=== PATIENT | male | born 1980 | race Caucasian/White ===

== ENCOUNTER 2019-01-17 09:44 | Day surgery (SDC) | payer BC, SELFPAY ==
--- NOTE | 2019-01-17 | PATH_ITS ---
[facility] Accession Number: [id number] . 01 Material submitted: . PART A: cecum - CECAL POLYP PART B: rectosigmoid junction - RECTOSIGMOID POLYP . 01 Clinical history: . COLONOSCOPY W/POSS BX . 02 Diagnosis: A. Cecum, Polyp, Biopsy: Sessile serrated adenoma. . B. Rectosigmoid Colon, Polyp, Biopsy: Hyperplastic polyp. MRV 01/18/2019 1338 Local . 02 Electronically signed: . Mica Cabrales MD, Pathologist NPI- [id number] . 01 Gross description: . Part A: CECAL POLYP : Received in formalin is 1 fragment(s) of orosco, soft tissue measuring 0.3 x 0.3 x 0.2 cm submitted entirely in 1 cassette(s) Part B: RECTOSIGMOID POLYP: Received in formalin is 1 fragment(s) of orosco, soft tissue measuring 0.3 x 0.3 x 0.2 cm submitted entirely in 1 cassette(s) [place] [place]/17/2019[place] Local . 02 Pathologist provided ICD-10: D12.0 . 02 CPT . 291377, 230639 Performed at: 01 [facility] [address] [facility] [place], [place], [place] [id number] MD Enzo Tuttle MD Phone: [phone] Performed at: 02 [facility] [place] [address] [place], [place] [id number] MD Mica Cabrales MD Phone: [phone]
--- NOTE | 2019-01-17 07:57 | P.HP_ITS ---
History of Present Illness History of Present Illness Date Patient Seen: 01/17/19 Chief complaint: [id number] COLONOSCOPY W/POSS BX Narrative: 38-year-old male with a family history of colon cancer in his father as well as a personal history of colon polyps, who had his last colonoscopy p erformed 08/18/2016 with removal of multiple polyps including a tubulovillous adenoma. Recommended recall was for 1 year. No active GI complaints at present Meds Home Medications and Allergies Home Medications Medication Instructions Recorded Confirmed Type No Known Home Medications 01/17/19 01/17/19 History Allergies Allergy/AdvReac Type Severity Reaction Status Date / Time No Known Drug Allergies Allergy Verified 01/17/19 10:09 Exam Narrative Exam Narrative: General: Patient is overweight, not in apparent distress Cardiovascular: Regular rate and rhythm, no murmurs, rubs, or gallops; no evidence of edema; no palpable abdominal aortic aneurysm Gastrointestinal: Normoactive bowel sounds, soft, nontender, nondistended, no rebound tenderness, no hepatosplenomegaly, no evidence of hernia Assessment & Plan Assessment & Plan narrative: 38-year-old male here for colon polyp surveillance; last colonoscopy August 2016 with multiple polyps; he has a family history of colon cancer in his father Regarding the procedure(s), the risks and potential complications, benefits, and alternatives (including not doing the procedure) were discussed with the patient. The risks include but are not limited to bleeding, splenic injury, infection, perforation which may require surgical intervention, missed lesions, and adverse reactions to sedative medicines. After a question and answer period, the patient agreed to proceed with the procedure(s) and gives informed consent.
[2019-01-17 10:09] VITALS: BP 125/83; PULSE 71; RESP 20; TEMP 36; O2SAT 98; BMI 26.6
[2019-01-17] MEDS: SODIUM CHLORIDE 0.9% 1,000 ML 70 ML IV (10:19)
[2019-01-17] MEDS: MIDAZOLAM 5 MG/5 ML VIAL IV (11:04)
[2019-01-17] MEDS: fentaNYL 250 MCG/5 ML INJ IV (11:05)
[2019-01-17 11:17] VITALS: BP 110/81; PULSE 69; RESP 11; TEMP 36.2; O2SAT 97
--- NOTE | 2019-01-17 11:17 | PM.OP.ENDO ---
Operative Date/Time/Diagnoses Date of procedure: 01/17/19 Procedure Notes Procedure in detail: Surgeon: Blake Young MD Procedure: Colonoscopy with polypectomy Preoperative diagnosis: Colon polyp surveillance, family history of colon cancer in father Postoperative diagnosis: Cecal and rectosigmoid polyps status post polypectomy, grade 1 internal hemorrhoids Medications: Conscious sedation using 4 mg IV of Midazolam and 100 mcg IV of Fentanyl Preanesthesia Assessment An H and P was performed/updated and the Px?s ASA class is 1. The procedure was discussed in detail with the patient. The potential risks and complications including infection, bleeding, missed lesions, perforation, need for surgery in case of perforation, prolonged hospital stay, and were explained. A brief question and answer period was allotted and once all questions were answered, informed consent was obtained. The patient was brought back to the procedure room and placed on standard monitoring. The patient?s vital signs were monitored continuously throughout the entire procedure. Prior to starting, a timeout was performed to confirm the patient?s identity, allergies, medications, and procedure. Procedure in detail The patient was placed in left lateral decubitus position and once adequate sedation was obtained a NENA was performed. The digital rectal examination did not reveal any palpable lesions. The tip of the colonoscope was placed in the anal canal and advanced without difficulty all the way to the cecum which was identified by the appendiceal orifice and the ileocecal valve. The terminal ileum was intubated to a distance of 5 cm from the ileocecal valve and the mucosa appeared normal. The colonoscope was then withdrawn back into the cecum. Careful examination of all jimenez of the colon was performed with irrigation of any residual stool. In the cecum, a 3 mm sessile polyp was found and removed by means of cold Jumbo forceps. Resection and retrieval was complete with minimal bleeding. In the rectosigmoid, a 2 mm sessile polyp was found and removed by means of cold Jumbo forceps. Resection and retrieval was complete with minimal bleeding Retroflexion was performed in the rectum which revealed grade 1 internal hemorrhoids. The patient tolerated the procedure well and will be brought back to the recovery area to be discharged once criteria are met. The prep was judged to be good and adequate to identify polyps less than 5 mm. The withdrawal time was 10 minutes. The total physician intraservice time was 15 minutes. Complications There were no complications and estimated blood loss was minimal. Recommendations: Resume previous diet Continue outPx medications Follow up pathology results Repeat colonoscopy in 5 years An emergency contact number was given to the patient for any complications related to the procedure
[2019-01-17 11:23] VITALS: BP 113/81; PULSE 68; RESP 19; TEMP 36.3; O2SAT 98
[2019-01-17 11:35] VITALS: BP 116/84; PULSE 73; RESP 18; TEMP 36.1; O2SAT 99
[2019-01-17 11:42] VITALS: BP 122/80; PULSE 72; RESP 20; TEMP 36.1; O2SAT 99
--- NOTE | 2019-01-17 11:42 | SUR.PHASEII ---
Patient denies pain/nausea. Tolerating po. VSS.
[2019-01-17 12:00] VITALS: BP 118/66; PULSE 66; RESP 16; TEMP 36.7; O2SAT 100
== END 2019-01-17 12:15 | disposition home or self-care (01) ==
PROVIDERS: Family Provider Family Medicine; PCP Family Medicine; Visit Provider Internal Medicine Gastroenterology
PROC: 0DJD8ZZ Inspection of Lower Intestinal Tract, Via Natural or Artificial Opening Endoscopic (ICD-10-PCS; CPT 45378; principal; 2019-01-17 11:00)
DX: Z12.11 Encounter for screening for malignant neoplasm of colon (principal); Z86.010 Personal history of colon polyps; Z80.0 Family history of malignant neoplasm of digestive organs; K64.0 First degree hemorrhoids; D12.0 Benign neoplasm of cecum; K63.5 Polyp of colon
CPT/HCPCS: 45380; J2250; J3010

== ENCOUNTER → 2023-06-03 11:57 | Outpatient (CLI) | payer BC, OTHER, SELFPAY ==
--- NOTE | 2023-06-03 11:59 | DI.RAD.S_ITS ---
PROCEDURE: XR CHEST 2V INDICATIONS: cough, SOB TECHNIQUE: 2 views of the chest were acquired. COMPARISON: None. FINDINGS: Surgical changes and devices: Postsurgical changes are seen in left glenoid with multiple suture anchors seen. Lungs and pleura: Lungs are clear. No pleural effusions or pneumothorax. Mediastinum: Mediastinal contours are normal. Heart size is normal. Bones and chest wall: No suspicious bony abnormalities. Soft tissues appear unremarkable. IMPRESSION: No acute cardiopulmonary pathology. Dictated by: Hipolito Montes De Oca M.D. on 06/03/2023 at 13:52 Approved by: Hipolito Montes De Oca M.D. on 06/03/2023 at 14:00
== END ==
PROVIDERS: Family Provider Family Medicine; PCP Family Medicine; Referring Provider Nurse Practitioner Family; Visit Provider Nurse Practitioner Family
DX: R05.9 Cough, unspecified (principal); R06.02 Shortness of breath
CPT/HCPCS: 71046

== ENCOUNTER 2023-08-07 09:47 | Emergency (ER) | payer BC, OTHER, SELFPAY ==
[2023-08-07 09:50] VITALS: BP 127/79; PULSE 82; RESP 16; TEMP 36.6; O2SAT 94; BMI 31.8
--- NOTE | 2023-08-07 10:02 | ED.FALL ---
HPI - Fall General Chief Complaint: Fall Stated Complaint: fell off ladder 8ft Time Seen by Provider: 08/07/23 09:56 Source: patient Mode of arrival: Ambulatory Limitations: no limitations History of Present Illness HPI Narrative: 42-year-old male with history of prior TBI, left rotator cuff repair who was cleaning his gutters this morning. He was coming down the ladder when it slipped out from underneath him. Patient states his feet were about 6-8 feet off the ground. Patient landed on his left side. He has complaints left-sided chest wall pain. A little bit into the flank. Patient states he does not think he hit his head he denies any headache, no loss of consciousness no dizziness no neck or back pain. Denies any hip or pelvic pain. States he has been able to ambulate without issue. He has some abrasions and swelling of his left forearm and shoulder. States he has good range of motion does not have any suspicion for broken bones. No numbness tingling or weakness. No loss of bowel or bladder control. Denies any intra-abdominal pain. Patient did not have any nausea or vomiting no other GI or urinary symptoms. This occurred this morning. Has not had anything for pain. States no daily prescription medications, has had prior left shoulder surgery in the past. No tobacco, occasional alcohol, none today, no recreational drugs. Primary care is Dr. Gonzales. Patient is accompanied by family. Patient is unsure of his tetanus status. Related Data Previous Rx's Medication Instructions Recorded oxycodone 5 mg tablet 5 mg PO Q6H PRN pain #10 tabs 08/07/23 Allergies Allergy/AdvReac Type Severity Reaction Status Date / Time No Known Drug Allergies Allergy Verified 06/03/23 11:12 Review of Systems Review of Systems ROS Unobtainable: All systems reviewed & are unremarkable except as noted in HPI and below Patient History Social History household members: spouse Smoking Status: Never smoker Smoking Status: Never smoker alcohol intake frequency: holidays/special occasions only Substance Use Type: does not use Exam Narrative Exam Narrative: GEN: Patient appears in mild distress. HEAD: No evidence of trauma, no raccoon/Gilbert sign. NECK: Nontender, painless range of motion, trachea midline Negative Nexus criteria, no midline line tenderness, distracting injury, altered mental status, neuro deficit, recent EtOH. EYES: PERRLA, EOMI ENT: External inspection normal, trachea is midline, TM's are normal no hemotypanum, Nares are clear, no septal hematoma, no dental or oral injury, airway is normal and with normal occlusion, No bony tenderness RESP: Chest slightly tender left lateral ribs, no point tenderness, no ecchymosis, no edema, no subcutaneous emphysema, and has symmetric movement, no ecchymosis, breath sounds are normal no crackles, wheezes or rales CVS: Heart sounds are normal, no murmur noted, No JVD. ABG/GI: Nontender, soft, normal bowel sounds, no distention, no organomegaly, pelvic rock is negative NEURO: Oriented AOx3, neuro is grossly intact, sensation and motor is normal all 4 extremities moving, cranial nerves II through XII are intact, GCS is 15 PSYCH: Normal mood and affect SKIN: Patient has a abrasion over the left forearm and arm, has some mild swelling and bruising over the proximal left forearm. Warm and dry, no crepitus and without decubitus BACK: No CVA tenderness, no vertebral tenderness, no step-off's, no crepitus EXT: Atraumatic, no bony tenderness of the extremities. Hips are nontender, no pedal edema, normal color and temperature, normal range of motion of extremities with normal tendon exam, 2+ pulses in all four extremities. Patient ambulated into the department. Initial Vital Signs Initial Vital Signs: Vital Signs Temperature 97.9 F 08/07/23 09:50 Pulse Rate 82 08/07/23 09:50 Respiratory Rate 16 08/07/23 09:50 Blood Pressure 127/79 08/07/23 09:50 Pulse Oximetry 94 08/07/23 09:50 Oxygen Delivery Method Room Air 08/07/23 09:50 Scores GCS Prasanna coma scale eye opening: Spontaneous [place] coma scale verbal response: Orientated [place] coma scale motor response: Obey commands [place] coma scale total score: 15 Nexus Score for C-Spine Focal Neurologic deficit present: No Midline spinal tenderness present: No Altered level of conciousness present: No Intoxication present: No Distracting Injury Present: No Nexus Criteria for C-spine: 0 Course Orders Ordered: ED Orders 08/07/23 10:02 XR ribs LT min 3V w CXR1V Stat Discontinued Medications Hydrocodone Bitart/Acetaminophen (Hydrocodone/Acet 5/325 Tablet) 1 tab PO NOW ONE Stop: 08/07/23 10:03 Last Admin: 08/07/23 10:09 Dose: 1 tab Documented By: Diphtheria/Tetanus/Acell Pertussis (Tet,Diph,Pertuss(Acell),Vac/Pf 0.5 Ml Syringe) 0.5 ml IM .ONCE ONE Stop: 08/07/23 10:03 Last Admin: 08/07/23 10:08 Dose: 0.5 ml Documented By: Vital Signs Vital signs: Vital Signs - 8 hr 08/07/23 11:31 Temperature 98.2 F Pulse Rate 86 Respiratory Rate 16 Blood Pressure 130/80 Pulse Oximetry 96 Oxygen Delivery Method Room Air MDM - Fall Lab Data Labs: Urine Dip Bedside Urine Glucose Negative Bedside Urine Bilirubin - Negative Bedside Urine Ketone - Negative Urine Specific [place] 1.030 Bedside Urine Occult Blood - Negative Bedside Urine pH 5.5 Bedside Urine Protein +/- 15 Bedside Urine Urobilinogen - Negative Bedside Urine Nitrite - Negative Bedside Urine Leukocytes - Negative Esterase Imaging Data Chest x-ray: Radiologist's Impression: [place] [id number] XRay Report Signed Patient: Art Glover III MR#: [id number] : 1980 Acct:[id number] Age/Sex: 42 / M Date of Service: 08/07/23 Loc: ED Accession Number: [id number] Procedure: XR ribs LT min 3V w CXR1V Ordering Provider: Debi Betancourt D.O. PROCEDURE: XR RIBS LT MIN 3V W CXR1V INDICATIONS: fell off ladder, 6-8 feet, left rib pain TECHNIQUE: 2 views of the ribs were acquired, along with a single view chest. COMPARISON: None. FINDINGS: Surgical changes and devices: None. Bones and chest wall: Left posterior-lateral 9th through 11th rib fractures with susu-tn-xajzeoid displacement. No suspicious bony lesions. Overlying soft tissues appear unremarkable. Anchors within the left shoulder. Lungs and pleura: No pleural effusions or pneumothorax. Lungs appear clear. Mediastinum: Mediastinal contours appear normal. Heart size is normal. IMPRESSION: Left 9th through 11th rib fractures without pneumothorax. Dictated by: Jack Freitas M.D. on 08/07/2023 at 9:27 Approved by: Jack Freitas M.D. on 08/07/2023 at 9:29 [facility] Narrative Medical decision making narrative: 42-year-old male fall from ladder proximally 6-8 feet. Patient fell on the left side, no complaints of head injury no headache no vertebral back pain. Patient has some mild tenderness on examination over the left lateral ribs. No abdominal tenderness or flank pain. No ecchymosis or other skin changes. Patient is not anticoagulated. Chest x-ray with ribs shows fracture posterolateral 9th through 11th with vbee-dt-wscdduru displacement, no pneumothorax. Patient received 1 [place] improvement in pain. Patient has been ambulating moving about comfortably. Patient was re-examined in no abdominal pain no flank pain on examination no bruising or ecchymosis. Patient is felt appropriate for discharge home. Point of care urine shows protein but no blood or other changes. Discussed signs and symptoms to watch for, return precautions all questions answered. Patient had teaching with incentive spirometer. Discharge Plan Departure Patient Disposition: Home Clinical Impression: Multiple rib fractures Qualifiers: Encounter type: initial encounter Fracture type: closed Laterality: left Qualified Code(s): S22.42XA - Multiple fractures of ribs, left side, initial encounter for closed fracture Instructions: DI for Rib Fracture Activity Restrictions/Additional Instructions: Follow up for recheck as needed. Your imaging does show you broke ribs 9, 10 and 11 on the left side. Use incentive spirometer once hourly while awake. You can take Tylenol up to a 1000 mg every 6 hours and/or ibuprofen up to 600 mg every 6 hours as needed for pain. Can take narcotic pain medication 1-2 tablets every 6 hours as needed for breakthrough pain. This medication can make you sleepy do not drive, perform hazardous activities or make any major decisions while taking it. This medication will make you constipated please take a stool softener once to twice daily until stools are soft and regular. Prescription sent to [facility] in [place]. Please return for new or worsening chest pain, increasing shortness of breath, lightheadedness or passing out, any vomiting, any new abdominal back or flank pain, new or increasing bruising or skin changes or other new or concerning changes. Prescriptions: New oxycodone 5 mg tablet 5 mg PO Q6H PRN (Reason: pain) Qty: 10 0RF Referrals: Carlo Gonzales MD [Primary Care Provider] - Stand Alone Forms: Patient Portal/API, Work Release Note
[2023-08-07] MEDS: TET,DIPH,PERTUSS(ACELL),VAC/PF 0.5 ML SYRINGE IM (10:08)
[2023-08-07] MEDS: HYDROCODONE/ACET 5/325 TABLET 1 TAB PO (10:09)
[2023-08-07 11:31] VITALS: BP 130/80; PULSE 86; RESP 16; TEMP 36.8; O2SAT 96
== END 2023-08-07 11:32 | disposition home or self-care (01) ==
PROVIDERS: Emergency Provider Emergency Medicine; Family Provider Family Medicine; PCP Family Medicine
DX: S22.42XA Multiple fractures of ribs, left side, initial encounter for closed fracture (principal); S50.812A Abrasion of left forearm, initial encounter; W11.XXXA Fall on and from ladder, initial encounter; Z23 Encounter for immunization
CPT/HCPCS: 71101; 81003; 90471; 99283; 90715

== ENCOUNTER 2024-01-30 08:45 | Day surgery (SDC) | payer BC, OTHER, SELFPAY ==
--- NOTE | 2024-01-30 | PATH_ITS ---
[facility] Accession Number: [id number] No. of containers..02 Tissue . 01 Material submitted: . PART A: colon - CECAL POLYP PART B: rectum - RECTAL POLYP . 01 Diagnosis: A. CECAL POLYP, BIOPSY: Serrated polyp with focal crypt architectural features, suggestive of sessile serrated adenoma. . B. RECTAL POLYP, BIOPSY: Tubular adenoma. MRV 02/01/2024 1253 Local . 01 Electronically signed: . Isabel Sauceda MD, Pathologist NPI- [id number] . 01 Gross description: . A. Received in formalin with two patient identifiers and cecal polyp, is a single orosco soft tissue fragment, 0.3 cm in greatest dimension, submitted in A1. B. Received in formalin with two patient identifiers and rectal polyp, is a single orosco soft tissue fragment, 0.4 cm in greatest dimension, submitted in B1. ([id number]) /MRV 01/31/2024 1928 Local . 01 Pathologist provided ICD-10: D12.0, D12.8 . 01 CPT . 986194, 372870 Specimen Comment: A courtesy copy of this report has been sent to [phone] Performed at: 01 [facility] [address], [place], [place] [id number] MD Enzo Tuttle MD Phone: [phone]
[2024-01-30 09:53] VITALS: BP 119/87; PULSE 59; RESP 18; TEMP 36.1; O2SAT 96
--- NOTE | 2024-01-30 10:53 | PM.HP.1 ---
History of Present Illness History of Present Illness Date Patient Seen: 01/30/24 Time Patient Seen: 10:53 Chief complaint: Colonoscopy w/poss bx Narrative: 43-year-old male with a family history of colon cancer in his dad who of the disease at age 55. Adalberto has a personal history of adenomatous colon polyps as well. His last exam was 3 years ago. [facility] Social History household members: spouse Smoking Status: Never smoker Meds Home Medications and Allergies Allergies Allergy/AdvReac Type Severity Reaction Status Date / Time No Known Drug Allergies Allergy Verified 01/30/24 09:47 Review of Systems Review of Systems ROS: Yes All systems reviewed with the patient and are negative except as otherwise documented Exam Vital Signs (past 8 hours): - 01/30/24 09:53 Temperature 97 F L Pulse Rate 59 L Respiratory Rate 18 Blood Pressure 119/87 Pulse Oximetry 96 Oxygen Delivery Method Room Air Oxygen Delivery Method Room Air Const General: cooperative HENMT Head: normal to inspection Eyes General: appearance normal, both eyes and all related structures Neck Neck: normal visual inspection Chest Chest: normal inspection of the chest Resp Effort & Inspection: normal respiratory effort Cardio Rate: regular rate GI Inspection: normal to inspection Skin General: no rashes or lesions noted Neuro General: patient alert and patient awake Extrem General: normal to inspection and no pedal edema Psych Appearance: grossly normal Assessment & Plan Assessment & Plan narrative: 43-year-old with a family history of colon cancer and a personal history of colon polyps. Colonoscopy is pursued today. Time-Based Coding :: [TOTAL MINUTES] spent with patient and on the chart (including review of chart, obtaining history, exam, reviewing outside data, placing orders, documenting exam and treatment plan, and counseling patient) on [DATE].
--- NOTE | 2024-01-30 10:54 | PM.PREOP ---
Pre-operative Note Interval Note History & Physical reviewed/Exam performed by Physician: Yes Changes to H&P: No ASA Class (for procedural sedation): I
--- NOTE | 2024-01-30 12:12 | PM.OP.COLON ---
Operative Date/Time/Diagnoses Date of procedure: 01/30/24 Time of procedure: 12:12 Pre-op diagnosis: Family history of colon cancer and a personal history of colon polyps Post-op diagnosis: same Procedure & Clinicians Study performed: Colonoscopy with cold snare and cold forceps polypectomies Same procedure as scheduled: Yes Indications: Family history of colon cancer and a personal history of colon polyps Surgeon: Erick Abdi Procedure Notes SCOAP/Timeout: Done Procedure in detail: After the risks and benefits were explained, written and verbal informed consent was obtained. The patient was brought into the procedure room and placed into the left lateral decubitus position. Please see anesthesia notes for sedation details. Digital rectal examination was accomplished. The scope was introduced into the patient and advanced under direct visualization to the cecum as identified by the appendiceal orifice and ileocecal valve. The scope was slowly withdrawn to carefully examine the mucosa for any defects or lesions. Comprehensive imaging was accomplished throughout the rectum including the dentate line. The colon was decompressed, the scope was then removed from the patient who tolerated the procedure well. Pediatric colonoscope Bowel prep adequate Scope withdrawal time: 15 minutes Sedation minutes: 22 Complications: none Impression: There was a diminutive polyp in the cecum removed with cold forceps. There was a approximately 5 mm polyp in the rectum that I initially attempted to remove with hot snare. The snare came through the polyp cold. No cautery was applied to the mucosa. The polyp appeared to have been completely excised. There was no significant bleeding. No additional pathology was appreciated throughout. The terminal ileum was interrogated and appeared visually normal. Endoscopic diagnosis Colon polyps x2 Post-procedure Plan for aftercare: 1. Await histology 2. Repeat colonoscopy 5 years. Disposition: PACU
[2024-01-30 12:14] VITALS: BP 94/56; PULSE 69; RESP 10; TEMP 36.2; O2SAT 93
[2024-01-30 12:21] VITALS: BP 115/74; PULSE 75; RESP 13; O2SAT 98
[2024-01-30 12:26] VITALS: BP 129/89; PULSE 72; RESP 18; O2SAT 99
[2024-01-30 12:36] VITALS: BP 114/85; PULSE 68; RESP 14; TEMP 36.1; O2SAT 100
== END 2024-01-30 12:42 | disposition home or self-care (01) ==
PROVIDERS: Family Provider Family Medicine; PCP Family Medicine; Referring Provider Internal Medicine Gastroenterology; Visit Provider Internal Medicine Gastroenterology
PROC: 0DJD8ZZ Inspection of Lower Intestinal Tract, Via Natural or Artificial Opening Endoscopic (ICD-10-PCS; CPT 45378; principal; 2024-01-30 10:30)
DX: Z12.11 Encounter for screening for malignant neoplasm of colon (principal); Z80.0 Family history of malignant neoplasm of digestive organs; Z86.0100 Personal history of colon polyps, unspecified; D12.0 Benign neoplasm of cecum; D12.8 Benign neoplasm of rectum
CPT/HCPCS: 45385; 45380; J2704